=== PATIENT | male | born 1975 | race Caucasian/White ===

== ENCOUNTER 2016-11-15 10:55 | Emergency (ER) | payer OTHER ==
[2014-02-10 11:39] VITALS: TEMP 98.3
[~2016-11-15] VITALS: Wt 90.0 kg
[2016-11-15] MEDS ORDERED: ACETAMINOPHEN 325 MG TAB PO STA (11:09)
[2016-11-15] MEDS ORDERED: IBUPROFEN 600 MG TAB PO STA (11:09)
--- NOTE | 2016-11-15 11:24 | ERD ---
ER Documentation Chief Complaint Date/Time DATE: 11/15/16 TIME: 11:20 Chief Complaint NEEDS MED REFILL FOR PAIN MEDS FOR OLD FRACTURE TO LEFT HAND HPI 41-year-old male presenting to the emergency department with a stated history of a boxer's fracture 3 weeks ago complaining of running out of narcotic pain medication. Patient was seen at [facility] for psychosis and admitted three weeks ago, he he states that he is running out of Xanax as well. Patient states that he will have another appointment to November 28 to see his primary care physician. Patient denies HI or SI. ROS All systems reviewed and are negative except as per history of present illness. Allergies Allergies: Coded Allergies: No Known Allergy (Unverified , 11/15/16) PMhx/Soc Medical and Surgical Hx: pt denies Medical Hx History of Surgery: Yes (Right leg and ankle surgery) Hx Alcohol Use: Yes Hx Substance Use: No Hx Tobacco Use: No Smoking Status: Never smoker Physical Exam Vitals Vital Signs Date Time Temp Pulse Resp B/P Pulse Ox O2 Delivery O2 Flow Rate FiO2 11/15/16 10:57 98.6 78 21 160/88 98 Physical Exam General: WD/WN, in no apparent distress, non-toxic appearing HENT: NC/AT Eyes: Conjunctiva normal Neck: Supple Pulm: Clear to auscultation, normal labored breathing; no wheezing/rales/ rhonchi heard CV: Good capillary refill GI: Non-distended, no guarding Back: No masses Ext: Velcro wrist on the left hand. no erythema or swelling. restricted range of motion Neuro: Moves on all fours Skin: intact Psych: Normal mood Results 24 hrs Current Medications Medications (Trade) Dose Ordered Sig/Adelso Route PRN Reason Start Time Stop Time Status Last Admin Dose Admin Lorazepam (Ativan) 1 mg ONCE ONCE IM 11/15/16 11:30 11/15/16 11:31 Acetaminophen (Tylenol Tab) 650 mg ONCE STAT PO 11/15/16 11:09 11/15/16 11:11 DC Ibuprofen (Motrin) 600 mg ONCE STAT PO 11/15/16 11:09 11/15/16 11:11 DC Procedures/MDM 41-year-old male presenting to the emergency department with a stated history of a boxer's fracture 3 weeks ago complaining of running out of narcotic pain medication. Patient was seen at [facility] for psychosis and admitted three weeks ago, he he states that he is running out of Xanax as well. Patient had a unremarkable examination. I discussed with patient that I will be unable to give him any narcotic medications or benzodiazepines for home. Patient was given Tylenol and ibuprofen in the ED. I have given him 1 mg of Ativan IM injection in the ED but no medications for home. I discussed with him to follow -up with his psychiatrist and face painter for further management. [facility]ES report has been obtained, patient received [place] 30 tablets in June and Xanax #15 in August. Patient denied HI or SI, patient is stable for discharge with precautions to return to the ER for any worsening symptoms. He understands and agrees with Departure Diagnosis: Primary Impression: Encounter for medication refill Additional Impression: Left hand pain Condition: Stable Patient Instructions: Taking Medicine Safely, Parts of a Hand, Pain Management Referrals: KATHRIN ALAS Additional Instructions: FOLLOW UP WITH YOUR PRIMARY CARE PHYSICIAN TOMORROW.Return to this facility if you are not improving as expected. Take all medicines as directed. Return to this facility if you are not improving as expected. JENNIFER ELLIOTT PA-C Nov 15, 2016 11:24
[2016-11-15] MEDS ORDERED: LORAZEPAM 2 MG INJ IM ONE (11:30)
[2016-11-15] MEDS ORDERED: LORAZEPAM 1 MG TAB PO STA (11:32)
== END 2016-11-15 11:47 | disposition home or self-care (01) ==
LOC: FTE 10:55
DX: Z76.0 Encounter for issue of repeat prescription (principal); M79.642 Pain in left hand
CPT/HCPCS: Z7502; Z7610; 99283; J2060